=== PATIENT | female | born 1950 | race Caucasian/White ===

== ENCOUNTER 2017-04-14 14:30 | Emergency (ER) | payer OTHER, BC ==
[2017-04-14 15:25] VITALS: BP 125/78
== END 2017-04-14 16:03 | disposition home or self-care (01) ==
LOC: ED 14:30
DX: S52.572A Other intraarticular fracture of lower end of left radius, initial encounter for closed fracture (principal); G81.94 Hemiplegia, unspecified affecting left nondominant side; I48.91 Unspecified atrial fibrillation; Z88.5 Allergy status to narcotic agent; Z86.73 Personal history of transient ischemic attack (TIA), and cerebral infarction without residual deficits; Z95.0 Presence of cardiac pacemaker; W01.0XXA Fall on same level from slipping, tripping and stumbling without subsequent striking against object, initial encounter; Y93.89 Activity, other specified; Y99.8 Other external cause status; Y92.89 Other specified places as the place of occurrence of the external cause
CPT/HCPCS: A4570; J1170; Q0092

== ENCOUNTER 2018-02-24 09:06 | Inpatient (IN) | payer OTHER, BC ==
[~2018-02-24] VITALS: Ht 177.8 cm; Wt 104.6 kg
[2018-02-24 09:10] VITALS: Ht 177.8 cm; Wt 104.6 kg
[2018-02-24] MEDS ORDERED: APAP500 MG PO (09:27)
[2018-02-24] MEDS ORDERED: DULCOLAX10 M1 PR (09:28)
[2018-02-24] MEDS ORDERED: FLEET ENEMA135 ML PR (09:29)
[2018-02-24] MEDS ORDERED: GOOD NEIGH1200 MG/15 PO (09:30)
[2018-02-24] MEDS ORDERED: MELATONIN3 MG PO (09:32)
[2018-02-24] MEDS ORDERED: LIPITOR10 MG PO (09:33)
[2018-02-24] MEDS ORDERED: POTASSIUM CHLO10 MEQ PO (09:34)
[2018-02-24] MEDS ORDERED: MASON NATURAL1000 IU PO (09:34)
[2018-02-24] MEDS ORDERED: CALCIUM 500-VI1 EACH PO (09:35)
[2018-02-24] MEDS ORDERED: CLEOCIN HCL300 MG PO (09:36)
[2018-02-24] MEDS ORDERED: MULTIVITAMIN1 SGL PO (09:37)
[2018-02-24] MEDS ORDERED: CELEXA40 MG PO (09:37)
[2018-02-24] MEDS ORDERED: GABAPENTIN100 M2 PO (09:38)
[2018-02-24] MEDS ORDERED: COUMADIN4 MG PO (09:39)
[2018-02-24] MEDS ORDERED: NAMENDA10 M2 PO (09:39)
[2018-02-24 10:23] LABS: BASOPHIL % 0.4 % (0-2); PLATELET COUNT 184 x10^3mcL (130-400); RED CELL DISTRIBUTION WIDTH 18.9 % (11.5-14.5)
[2018-02-24 10:49] LABS: ALKALINE PHOSPHATASE 239 U/L (46-116); ALT/SGPT 36 U/L (14-59); AST/SGOT 21 U/L (15-37); BILIRUBIN TOTAL 0.6 mg/dL (0.20-1.00); CALCIUM 8.3 mg/dL (8.5-10.1); CARBON DIOXIDE 30.4 mmol/L (21-32); CHLORIDE SERUM 108 mmol/L (98-107); CREATININE SERUM 0.6 mg/dL (0.6-1.0); GFR1 > 60 mL/min; GLUCOSE SERUM 97 mg/dL (74-106); HDL CHOLESTEROL 44 mg/dL (40-60); LIPASE 69 IU/L (73-393); POTASSIUM SERUM 4.8 mmol/L (3.5-5.1); SODIUM SERUM 140 mmol/L (136-145)
[2018-02-24 10:50] LABS: ALBUMIN 2.3 g/dL (3.4-5.0); AMYLASE 16 U/L (25-115); CHOLESTEROL 88 mg/dL (<200); TOTAL PROTEIN, SERUM 5.3 g/dL (6.4-8.2)
[2018-02-24 11:05] LABS: UA SPECIFIC GRAVITY 1.025 (1.005-1.035); microscopic required? YES; urine erythrocyte TRACE (NEGATIVE)
[2018-02-24 16:07] VITALS: BP 130/64
[2018-02-24 20:29] VITALS: BP 96/42
[2018-02-25 03:22] LABS: BASOPHIL % 1.2 % (0-2); PLATELET COUNT 155 x10^3mcL (130-400)
[2018-02-25 03:31] LABS: CALCIUM 7.8 mg/dL (8.5-10.1); CARBON DIOXIDE 30.8 mmol/L (21-32); CHLORIDE SERUM 108 mmol/L (98-107); CREATININE SERUM 0.6 mg/dL (0.6-1.0); GFR1 > 60 mL/min; GLUCOSE SERUM 83 mg/dL (74-106); MAGNESIUM 1.8 mg/dL (1.8-2.4); POTASSIUM SERUM 4.3 mmol/L (3.5-5.1); SODIUM SERUM 139 mmol/L (136-145)
[2018-02-25 05:37] VITALS: BP 120/67
[2018-02-25 09:22] VITALS: BP 121/55
[2018-02-25 13:16] VITALS: BP 127/61
[2018-02-25 15:16] VITALS: BP 127/61
== END 2018-02-25 16:59 | DRG 205 ==
LOC: ED 09:06 → DU 14:27
PROVIDERS: Emergency Medicine; Internal Medicine
DX: M94.0 Chondrocostal junction syndrome [Tietze] (principal); N17.0 Acute kidney failure with tubular necrosis; I69.354 Hemiplegia and hemiparesis following cerebral infarction affecting left non-dominant side; N39.0 Urinary tract infection, site not specified; K21.9 Gastro-esophageal reflux disease without esophagitis; F32.9 Major depressive disorder, single episode, unspecified; I48.91 Unspecified atrial fibrillation; M17.12 Unilateral primary osteoarthritis, left knee; E78.00 Pure hypercholesterolemia, unspecified; D64.9 Anemia, unspecified; Z66 Do not resuscitate; Z98.84 Bariatric surgery status; Z95.0 Presence of cardiac pacemaker; Z68.31 Body mass index [BMI] 31.0-31.9, adult; F03.90 Unspecified dementia, unspecified severity, without behavioral disturbance, psychotic disturbance, mood disturbance, and anxiety; Z86.718 Personal history of other venous thrombosis and embolism
CPT/HCPCS: 83880; 85378; 90658; J0696; J2270; J7040; Q0092; Q9967

== ENCOUNTER 2019-08-31 18:41 | Emergency (ER) | payer OTHER, BC ==
[~2019-08-31] VITALS: Ht 177.8 cm; Wt 90.7 kg
[~2019-08-31 18:41] MED LIST: APAP500 MG PO; CALCIUM 500-VI1 EACH PO; CELEXA40 MG PO; CLEOCIN HCL300 MG PO; COUMADIN4 MG PO; DULCOLAX10 M1 PR; FLEET ENEMA135 ML PR; GABAPENTIN100 M2 PO; GOOD NEIGH1200 MG/15 PO; LIPITOR10 MG PO; MASON NATURAL1000 IU PO; MELATONIN3 MG PO; MULTIVITAMIN1 SGL PO; NAMENDA10 M2 PO; POTASSIUM CHLO10 MEQ PO
[2019-08-31 18:44] VITALS: Ht 177.8 cm; Wt 90.7 kg
[2019-08-31 19:32] LABS: BASOPHIL % 0.4 % (0-2)
[2019-08-31 19:33] LABS: PLATELET COUNT 107 x10^3mcL (130-400); RED CELL DISTRIBUTION WIDTH 16.7 % (11.5-14.5)
[2019-08-31 19:45] LABS: CALCIUM 8.1 mg/dL (8.5-10.1); CARBON DIOXIDE 23.2 mmol/L (21-32); CHLORIDE SERUM 107 mmol/L (98-107); CREATININE SERUM 0.8 mg/dL (0.6-1.0); GFR1 > 60 mL/min; GLUCOSE SERUM 120 mg/dL (74-106); POTASSIUM SERUM 4.1 mmol/L (3.5-5.1); SODIUM SERUM 140 mmol/L (136-145)
[2019-08-31 19:49] LABS: ALBUMIN 2.8 g/dL (3.4-5.0); ALKALINE PHOSPHATASE 58 U/L (46-116); ALT/SGPT 31 U/L (14-59); AST/SGOT 21 U/L (15-37); CHOLESTEROL 110 mg/dL (<200); HDL CHOLESTEROL 37 mg/dL (40-60); LIPASE 40 IU/L (73-393); TOTAL PROTEIN, SERUM 5.7 g/dL (6.4-8.2); TRIGLYCERIDES 66 mg/dL (<150)
[2019-08-31 20:06] LABS: T3 TOTAL 0.87 ng/mL
[2019-08-31 20:09] LABS: FREE T4 1.42 ng/dL (0.76-1.46); FREE THYROXINE INDEX 2.8 ug/dL (1.4-4.5); T4(THYROXINE) 7.7 ug/dL (4.7-13.3)
[2019-08-31 20:57] LABS: UA SPECIFIC GRAVITY 1.025 (1.005-1.035); urine erythrocyte NEGATIVE (NEGATIVE)
[2019-08-31 20:59] LABS: microscopic required? YES
[2019-08-31 23:37] VITALS: BP 101/39
[2019-09-01] MEDS ORDERED: NAMENDA10 M2 PO (17:37)
[2019-09-01] MEDS ORDERED: GRALISE600 MG PO (17:37)
[2019-09-01] MEDS ORDERED: COU2 PO (17:38)
[2019-09-01] MEDS ORDERED: ATORVASTATIN CA10 M1 PO (17:39)
[2019-09-01] MEDS ORDERED: OXYBUTYNIN CHLOR5 MG PO (17:39)
[2019-09-01] MEDS ORDERED: POTASSIUM CHLOR8 MEQ PO (17:40)
[2019-09-01] MEDS ORDERED: NOR10T PO (17:40)
== END 2019-09-01 00:25 | disposition short-term general hospital (02) ==
LOC: ED 18:41
PROVIDERS: Specialist
DX: M54.5 Low back pain (principal); Z88.5 Allergy status to narcotic agent
CPT/HCPCS: 36415; 83880; 84439; 87804; Q0092

== ENCOUNTER 2019-09-01 13:14 | Inpatient (IN) | payer OTHER, BC ==
[~2019-09-01] VITALS: Ht 162.6 cm; Wt 105.8 kg
[2019-09-01 14:23] LABS: BASOPHIL % 0.4 % (0-2)
[2019-09-01 14:31] LABS: PLATELET COUNT 114 x10^3mcL (130-400); RED CELL DISTRIBUTION WIDTH 16.6 % (11.5-14.5)
[2019-09-01 15:08] LABS: CARBON DIOXIDE 21.8 mmol/L (21-32); CHLORIDE SERUM 107 mmol/L (98-107); CREATININE SERUM 0.9 mg/dL (0.6-1.0); GFR1 > 60 mL/min; GLUCOSE SERUM 128 mg/dL (74-106); POTASSIUM SERUM 3.8 mmol/L (3.5-5.1); SODIUM SERUM 141 mmol/L (136-145)
[2019-09-01 15:12] LABS: ALBUMIN 2.8 g/dL (3.4-5.0); ALKALINE PHOSPHATASE 60 U/L (46-116); ALT/SGPT 30 U/L (14-59); AST/SGOT 23 U/L (15-37); BILIRUBIN TOTAL 1.5 mg/dL (0.20-1.00); CHOLESTEROL 105 mg/dL (<200); HDL CHOLESTEROL 35 mg/dL (40-60); PHOSPHOROUS 2.9 mg/dL (2.5-4.9); TOTAL PROTEIN, SERUM 5.8 g/dL (6.4-8.2)
[2019-09-01 16:41] LABS: FREE T4 1.77 ng/dL (0.76-1.46); FREE THYROXINE INDEX 3.5 ug/dL (1.4-4.5); T4(THYROXINE) 9.6 ug/dL (4.7-13.3)
[2019-09-01] MEDS ORDERED: GRALISE600 MG PO (17:37)
[2019-09-01] MEDS ORDERED: NAMENDA10 M2 PO (17:37)
[2019-09-01] MEDS ORDERED: COU2 PO (17:38)
[2019-09-01] MEDS ORDERED: OXYBUTYNIN CHLOR5 MG PO (17:39)
[2019-09-01] MEDS ORDERED: ATORVASTATIN CA10 M1 PO (17:39)
[2019-09-01] MEDS ORDERED: POTASSIUM CHLOR8 MEQ PO (17:40)
[2019-09-01] MEDS ORDERED: NOR10T PO (17:40)
[2019-09-01 17:41] VITALS: BP 122/57
[2019-09-01 17:46] LABS: T3 TOTAL 1.03 ng/mL
[2019-09-01 17:49] VITALS: Ht 162.6 cm; Wt 105.8 kg
[2019-09-01 20:10] VITALS: BP 97/49
[2019-09-02 02:40] LABS: microscopic required? NO
[2019-09-02 03:17] LABS: UA SPECIFIC GRAVITY 1.025 (1.005-1.035); urine erythrocyte NEGATIVE (NEGATIVE)
[2019-09-02 03:41] LABS: AMPHETAMINE QUAL UR NONE DETECTED (See below)
[2019-09-02 05:08] VITALS: BP 115/53
[2019-09-02 07:24] LABS: BASOPHIL % 0.6 % (0-2)
[2019-09-02 07:30] LABS: PLATELET COUNT 110 x10^3mcL (130-400)
[2019-09-02 07:52] LABS: CALCIUM 8.3 mg/dL (8.5-10.1); CARBON DIOXIDE 24.8 mmol/L (21-32); CHLORIDE SERUM 106 mmol/L (98-107); CREATININE SERUM 0.7 mg/dL (0.6-1.0); GFR1 > 60 mL/min; GLUCOSE SERUM 94 mg/dL (74-106); MAGNESIUM 2.1 mg/dL (1.8-2.4); PHOSPHOROUS 3.1 mg/dL (2.5-4.9); POTASSIUM SERUM 4.4 mmol/L (3.5-5.1); SODIUM SERUM 140 mmol/L (136-145)
[2019-09-02 08:00] VITALS: BP 107/68
[2019-09-02 11:09] LABS: ALBUMIN 2.7 g/dL (3.4-5.0); BILIRUBIN DIRECT 0.22 mg/dL (0.0-0.2); BILIRUBIN TOTAL 1.19 mg/dL (0.20-1.00); TOTAL PROTEIN, SERUM 5.5 g/dL (6.4-8.2)
[2019-09-02 13:19] VITALS: BP 96/75
[2019-09-02 21:20] VITALS: BP 116/50
[2019-09-03 06:35] VITALS: BP 96/60
[2019-09-03 07:22] LABS: BASOPHIL % 0.7 % (0-2)
[2019-09-03 07:25] LABS: CARBON DIOXIDE 27.3 mmol/L (21-32); CHLORIDE SERUM 105 mmol/L (98-107); CREATININE SERUM 0.8 mg/dL (0.6-1.0); GFR1 > 60 mL/min; GLUCOSE SERUM 96 mg/dL (74-106); PHOSPHOROUS 3.2 mg/dL (2.5-4.9); POTASSIUM SERUM 4.4 mmol/L (3.5-5.1); SODIUM SERUM 140 mmol/L (136-145)
[2019-09-03 07:31] LABS: PLATELET COUNT 122 x10^3mcL (130-400)
[2019-09-03 07:46] LABS: CALCIUM 8.4 mg/dL (8.5-10.1)
[2019-09-03 08:00] VITALS: BP 110/80
[2019-09-03 12:32] VITALS: BP 112/66
[2019-09-03 17:59] VITALS: BP 110/68
[2019-09-03 20:30] VITALS: BP 106/48
[2019-09-04 06:00] VITALS: BP 112/76
[2019-09-04 07:12] LABS: CALCIUM 8.6 mg/dL (8.5-10.1); CARBON DIOXIDE 29.9 mmol/L (21-32); CHLORIDE SERUM 104 mmol/L (98-107); CREATININE SERUM 0.7 mg/dL (0.6-1.0); GFR1 > 60 mL/min; GLUCOSE SERUM 85 mg/dL (74-106); MAGNESIUM 1.9 mg/dL (1.8-2.4); PHOSPHOROUS 3.3 mg/dL (2.5-4.9); POTASSIUM SERUM 3.9 mmol/L (3.5-5.1); SODIUM SERUM 138 mmol/L (136-145)
[2019-09-04 07:22] LABS: BASOPHIL % 0.7 % (0-2)
[2019-09-04 07:25] LABS: PLATELET COUNT 117 x10^3mcL (130-400); RED CELL DISTRIBUTION WIDTH 16.9 % (11.5-14.5)
[2019-09-04] MEDS ORDERED: APLICARE ANTIS118 M3 TOP (11:13)
[2019-09-04] MEDS ORDERED: BACO TOP (11:13)
[2019-09-04 15:16] VITALS: BP 112/76
== END 2019-09-04 17:13 | DRG 551 ==
LOC: ED 13:14 → MU 15:15 → ED 15:15 → DU 15:19 → MU 15:19 → DU 16:54 → MU 09-02 16:32
PROVIDERS: Emergency Medicine; Internal Medicine; ADMIT Family Medicine
DX: S32.019A Unspecified fracture of first lumbar vertebra, initial encounter for closed fracture (principal); N17.0 Acute kidney failure with tubular necrosis; S22.080A Wedge compression fracture of T11-T12 vertebra, initial encounter for closed fracture; E44.0 Moderate protein-calorie malnutrition; Z68.41 Body mass index [BMI] 40.0-44.9, adult; S32.039A Unspecified fracture of third lumbar vertebra, initial encounter for closed fracture; S32.049A Unspecified fracture of fourth lumbar vertebra, initial encounter for closed fracture; Z88.6 Allergy status to analgesic agent; I48.91 Unspecified atrial fibrillation; Z95.0 Presence of cardiac pacemaker; Z90.710 Acquired absence of both cervix and uterus; E86.0 Dehydration; F03.90 Unspecified dementia, unspecified severity, without behavioral disturbance, psychotic disturbance, mood disturbance, and anxiety; W05.0XXA Fall from non-moving wheelchair, initial encounter; Y93.89 Activity, other specified; Y92.89 Other specified places as the place of occurrence of the external cause; Y99.8 Other external cause status
CPT/HCPCS: 36415; 83880; 84439; 87804; 97110-GP; 97112-GP; 97530-GP; G0378; J1885; J3010; Q0092

== ENCOUNTER 2019-10-08 16:45 | Inpatient (IN) | payer OTHER, BC ==
[~2019-10-08] VITALS: Ht 177.8 cm; Wt 98.2 kg
[~2019-10-08 16:45] MED LIST changes: +APLICARE ANTIS118 M3 TOP; +ATORVASTATIN CA10 M1 PO; +BACO TOP; +COU2 PO; +GRALISE600 MG PO; +NOR10T PO; +OXYBUTYNIN CHLOR5 MG PO; +POTASSIUM CHLOR8 MEQ PO
[2019-10-08 16:57] VITALS: Ht 177.8 cm; Wt 98.2 kg
[2019-10-08 17:42] LABS: BASOPHIL % 0 % (0-2); PLATELET COUNT 308 x10^3mcL (130-400); RED CELL DISTRIBUTION WIDTH 18.8 % (11.5-14.5)
[2019-10-08 18:09] LABS: T3 TOTAL 0.58 ng/mL
[2019-10-08 18:21] LABS: CALCIUM 9.1 mg/dL (8.5-10.1); FREE T4 1.73 ng/dL (0.76-1.46); POTASSIUM SERUM 5.1 mmol/L (3.5-5.1); T4(THYROXINE) 7.4 ug/dL (4.7-13.3)
[2019-10-08 18:26] LABS: CK-MB 0.7 ng/mL (0-3.6)
[2019-10-08 18:30] LABS: ERYTHROCYTE SED RATE 94 mm/hr (0-30)
[2019-10-08 18:37] LABS: ALBUMIN 2.1 g/dL (3.4-5.0); BILIRUBIN TOTAL 0.57 mg/dL (0.20-1.00); TOTAL PROTEIN, SERUM 6.2 g/dL (6.4-8.2)
[2019-10-08 18:42] LABS: C REACTIVE PROTEIN 23.8 mg/dL (<=0.9)
[2019-10-08 21:59] VITALS: BP 124/50
[2019-10-09 05:26] VITALS: BP 128/70
[2019-10-09 06:26] LABS: BASOPHIL % 0.1 % (0-2); PLATELET COUNT 279 x10^3mcL (130-400)
[2019-10-09 06:38] LABS: RED CELL DISTRIBUTION WIDTH 19.3 % (11.5-14.5)
[2019-10-09 06:39] LABS: CARBON DIOXIDE 27.7 mmol/L (21-32); CHLORIDE SERUM 101 mmol/L (98-107); CREATININE SERUM 0.7 mg/dL (0.6-1.0); GFR1 > 60 mL/min; GLUCOSE SERUM 102 mg/dL (74-106); MAGNESIUM 1.8 mg/dL (1.8-2.4); PHOSPHOROUS 3.4 mg/dL (2.5-4.9); POTASSIUM SERUM 4.3 mmol/L (3.5-5.1); SODIUM SERUM 136 mmol/L (136-145)
[2019-10-09 08:25] VITALS: BP 126/59
[2019-10-09 12:20] VITALS: BP 110/56
[2019-10-09 16:17] VITALS: BP 108/60
[2019-10-09 20:49] VITALS: BP 111/63
[2019-10-10 04:50] VITALS: BP 126/64
[2019-10-10 06:42] LABS: BASOPHIL % 0.7 % (0-2); PLATELET COUNT 266 x10^3mcL (130-400)
[2019-10-10 07:22] LABS: CALCIUM 7.5 mg/dL (8.5-10.1); CARBON DIOXIDE 27.5 mmol/L (21-32); CHLORIDE SERUM 104 mmol/L (98-107); CREATININE SERUM 0.8 mg/dL (0.6-1.0); GFR1 > 60 mL/min; GLUCOSE SERUM 81 mg/dL (74-106); MAGNESIUM 1.8 mg/dL (1.8-2.4); PHOSPHOROUS 3.2 mg/dL (2.5-4.9); POTASSIUM SERUM 3.8 mmol/L (3.5-5.1); SODIUM SERUM 139 mmol/L (136-145)
[2019-10-10 07:45] LABS: ERYTHROCYTE SED RATE 88 mm/hr (0-30)
[2019-10-10 08:32] LABS: RED CELL DISTRIBUTION WIDTH 19.2 % (11.5-14.5)
[2019-10-10 08:43] VITALS: BP 111/58
[2019-10-10 13:16] VITALS: BP 122/65
[2019-10-10 16:59] VITALS: BP 119/66
[2019-10-10 21:35] VITALS: BP 119/53
[2019-10-11 06:04] VITALS: BP 130/69
[2019-10-11 07:51] LABS: BASOPHIL % 0.9 % (0-2); PLATELET COUNT 300 x10^3mcL (130-400)
[2019-10-11 08:00] VITALS: BP 148/73
[2019-10-11 08:05] LABS: CALCIUM 7.7 mg/dL (8.5-10.1); CHLORIDE SERUM 107 mmol/L (98-107); CREATININE SERUM 0.7 mg/dL (0.6-1.0); GFR1 > 60 mL/min; GLUCOSE SERUM 86 mg/dL (74-106); POTASSIUM SERUM 3.8 mmol/L (3.5-5.1); SODIUM SERUM 140 mmol/L (136-145)
[2019-10-11 08:22] LABS: RED CELL DISTRIBUTION WIDTH 19.5 % (11.5-14.5)
[2019-10-11] MEDS ORDERED: VAN1I IV (09:48)
[2019-10-11 10:27] VITALS: BP 148/73
[2019-10-11 12:35] VITALS: BP 118/75
== END 2019-10-11 14:20 | DRG 154 ==
LOC: ED 16:45 → DU 20:02
PROVIDERS: Specialist; ADMIT Family Medicine; ATTEND Family Medicine
DX: K11.20 Sialoadenitis, unspecified (principal); N17.0 Acute kidney failure with tubular necrosis; E87.1 Hypo-osmolality and hyponatremia; E44.0 Moderate protein-calorie malnutrition; I69.354 Hemiplegia and hemiparesis following cerebral infarction affecting left non-dominant side; D64.9 Anemia, unspecified; E86.0 Dehydration; I48.91 Unspecified atrial fibrillation; F03.90 Unspecified dementia, unspecified severity, without behavioral disturbance, psychotic disturbance, mood disturbance, and anxiety; Z95.0 Presence of cardiac pacemaker; Z88.5 Allergy status to narcotic agent; Z88.1 Allergy status to other antibiotic agents; Z88.8 Allergy status to other drugs, medicaments and biological substances; Z90.710 Acquired absence of both cervix and uterus; Z90.89 Acquired absence of other organs; Z86.718 Personal history of other venous thrombosis and embolism; Z68.30 Body mass index [BMI] 30.0-30.9, adult
CPT/HCPCS: 36600; 84439; 97110-GP; G0378; J2543; J3370; J3430; J3490; J7030; Q0092; Q9967; U0003-CS